=== PATIENT | female | born 1965 | race Caucasian/White ===

== ENCOUNTER 2020-10-12 17:18 | Emergency (ER) | payer OTHER ==
--- NOTE | 2020-10-12 17:45 | EDM.PDOC ---
ED HPI GENERAL MEDICAL PROBLEM - General Stated Complaint: HIGH FEVER Time Seen by Provider: 10/12/20 17:30 - History of Present Illness INITIAL COMMENTS - FREE TEXT/NARRATIVE: Patient presents to the Ed for covid 19 symptoms for the last 2-3 days. She was exposed by both of her parents and her mother is hospitalized with it. She has not been vaccinated. She has cough, fever, body aches, headaches. She took 500 mg of tylenol and it didn't help her fever so she took another 500 mg . SHE is not taking anything for her cough. No comorbid conditions. - Related Data Home Meds: Home Meds Albuterol Sulfate [Albuterol Sulfate HFA] 8.5 gm INH Q4HR #1 ea 10/12/20 [Rx] Benzonatate [Tessalon Perle] 100 mg PO Q8HR PRN #30 capsule 10/12/20 [Rx] Social & Family History - Alcohol Use Alcohol Use History: No - Recreational Drug Use Recreational Drug Use: No Drug Use in Last 12 Months: No ED ROS GENERAL - Review of Systems Review Of Systems: See Below Constitutional: Reports: Fever, Chills, Malaise, Weakness, Fatigue, Decreased Appetite HEENT: Reports: No Symptoms. Denies: Sinus Problem, Throat Pain, Throat Swelling Respiratory: Reports: Shortness of Breath, Cough. Denies: Sputum, Hemoptysis Cardiovascular: Reports: Dyspnea on Exertion. Denies: Chest Pain, Lightheadedness Endocrine: Reports: No Symptoms GI/Abdominal: Denies: Abdominal Pain, Nausea, Vomiting : Reports: No Symptoms. Denies: Discharge, Dysuria, Frequency Musculoskeletal: Reports: Other (myalgia) Skin: Reports: No Symptoms Neurological: Reports: Headache. Denies: Confusion, Dizziness ED EXAM, GENERAL - Physical Exam Exam: See Below Exam Limited By: No Limitations General Appearance: Alert, WD/WN, No Apparent Distress Eye Exam: Bilateral Eye: EOMI, Normal Inspection, PERRL Nose: Normal Inspection, Normal Mucosa Throat/Mouth: Normal Inspection, Normal Lips, Normal Teeth, Normal Voice Head: Atraumatic Neck: Normal Inspection, Supple Respiratory/Chest: No Respiratory Distress, Lungs Clear Cardiovascular: Normal Peripheral Pulses, Regular Rate, Rhythm, No Murmur Extremities: Normal Inspection, Normal Range of Motion, Non-Tender, No Pedal Edema, Normal Capillary Refill Neurological: Alert, Oriented, CN II-XII Intact, Normal Cognition, No Motor/Sensory Deficits Course - Orders/Labs/Meds Orders: Active Orders 24 hr Category Date Time Status CORONAVIRUS COVID-19 RAPID [MOLEC] Stat Lab 10/12/20 17:25 Ordered - Re-Assessments/Exams Free Text/Narrative Re-Assessment/Exam: 10/12/20 17:52 Positive for Covid 19. discussed home strategies, fever control, hydration, cough and return to the ED guidelines sats are normal, not tachycardic, no fever here Departure - Departure Time of Disposition: 17:50 Disposition: Home, Self-Care 01 Condition: Fair Clinical Impression: COVID-19 - Discharge Information *PRESCRIPTION DRUG MONITORING PROGRAM REVIEWED*: Not Applicable *COPY OF PRESCRIPTION DRUG MONITORING REPORT IN PATIENT ALEE: Not Applicable Prescriptions: Albuterol Sulfate [Albuterol Sulfate HFA] 8.5 gm INH Q4HR #1 ea Benzonatate [Tessalon Perle] 100 mg PO Q8HR PRN #30 capsule PRN Reason: Other Instructions: 10 Things You Can Do to Manage Your COVID-19 Symptoms at Home - CDC, COVID-19, Prevent the Spread of COVID-19 if You Are Sick - CDC, COVID-19 Frequently Asked Questions, COVID-19: How to Protect Yourself and Others - CDC Additional Instructions: Use over the counter Delsym for cough. Take the tessalon perrles every 8 hours to help with cough. Wear a mask at all times when around others or when you are out of the house. Stay well hydrated. Use the albuteral inhaler every 4 hours as needed for cough. Control fever. Take 1000 mg of tylenol every 6 hours and can alternate 600 mg of motrin every 6 hours for body aches and fever. Watch your apple watch, if your oxygen drops below 90%, if your heart rate is greater than 100, or if you are breathing more than 20 times a minute, return to the ED for evaluation. Otherwise quarantine for 14 days from symptom onset. All contacts should also quarantine. - My Orders Last 24 Hours: My Active Orders 10/12/20 17:25 CORONAVIRUS COVID-19 RAPID [MOLEC] Stat - Assessment/Plan Last 24 Hours: My Active Orders 10/12/20 17:25 CORONAVIRUS COVID-19 RAPID [MOLEC] Stat
== END 2020-10-12 18:01 | disposition home or self-care (01) ==
LOC: VM.ED 17:18
DX: U07.1 COVID-19 (principal)
CPT/HCPCS: 99283; 99284; U0002